=== PATIENT | female | born 1985 | race Caucasian/White ===

== ENCOUNTER → 2020-05-29 15:00 | Outpatient (BNVA) | payer BC, SELFPAY | PROVIDERS: Visit Provider Advanced Practice Midwife | DX: Z76.89 Persons encountering health services in other specified circumstances (principal) ==

== ENCOUNTER → 2021-10-06 08:28 | Outpatient (BNVA) | payer BC, SELFPAY | PROVIDERS: PCP Internal Medicine; Visit Provider Advanced Practice Midwife | DX: Z13.89 Encounter for screening for other disorder (principal) ==

== ENCOUNTER 2022-01-20 10:03 | Outpatient (REF) | payer BC, SELFPAY ==
[2022-01-20 10:27] LABS: MANUAL DIFF FLAG NO
[2022-01-20 10:56] LABS: Basophils Absolute Auto 0.1 X10*3/uL (0.0-0.2); Basophils Percent Auto 1.1 % (0-2); Eosinophils Absolute Auto 0.4 X10*3/uL (0.0-0.4); Eosinophils Percent Auto 3.8 % (0-4); Hematocrit 44.6 % (37.0-47.0); Hemoglobin 15.3 g/dl (12.0-16.0); Imm Gran Abs Auto 0.04 X10*3/uL (0.00-0.03); Imm Gran Pct Auto 0.4 % (0.0-0.4); Lymphocytes Absolute Auto 2.5 X10*3/uL (1.2-4.9); Lymphocytes Percent Auto 24.1 % (20-40); Mean Corpuscular HGB Conc 34.3 g/dl (31.0-35.0); Mean Corpuscular Hemoglobin 31.2 pg (27.0-33.0); Mean Platelet Volume 9.3 fL (9.4-12.3); Monocytes Absolute Auto 0.7 X10*3/uL (0.1-1.2); Monocytes Percent Auto 6.5 % (2-11); Neutrophils Absolute Auto 6.5 x10*3/uL (2.0-8.3); Neutrophils Percent Auto 64.1 % (45-73); Platelet Count 233 X10*3/uL (160-400); Red Cell Distribution Width 13.2 % (11.0-16.0); White Blood Count 10.2 X10*3/uL (4.8-10.8)
[2022-01-20 14:31] LABS: Alanine Aminotransferase 40 U/L (0-31); Albumin Level 4.6 g/dL (3.5-5.0); Alkaline Phosphatase 116 U/L (39-117); Anion Gap 17 (12-20); Aspartate Amino Transferase 34 U/L (5-31); Blood Urea Nitrogen 14 mg/dL (9-16); Calcium 9.6 mg/dL (8.4-10.2); Carbon Dioxide 23 mmol/L (22-29); Chloride 104 mmol/L (96-108); Cholesterol 248 mg/dL; Estimated Glomerular Filt Rate > 60; Glucose Fasting 103 mg/dL (60-99); HDL Cholesterol 71 mg/dL; LDL Cholesterol Calculated 152 mg/dl; Sodium 139 mmol/L (135-145); Total Protein 7.6 g/dL (6.5-8.0); Triglycerides 125 mg/dL
== END 2022-01-20 10:04 | disposition home or self-care (01) ==
LOC: HO.LAB 10:03
PROVIDERS: PCP Internal Medicine; Visit Provider Internal Medicine
DX: Z00.00 Encounter for general adult medical examination without abnormal findings (principal)
CPT/HCPCS: 36415; 80053; 80061; 85025

== ENCOUNTER 2022-05-05 16:06 | Outpatient (REF) | payer BC, SELFPAY ==
[2022-05-05 17:20] LABS: Influenza A PCR NEGATIVE (Negative); Influenza B PCR NEGATIVE (Negative); Resp Syncy Virus RNA Qual PCR NEGATIVE (Negative); SARS COV2 PCR INHOUSE NEGATIVE (Negative)
== END 2022-05-05 16:07 | disposition home or self-care (01) ==
LOC: HO.LNP 16:06
PROVIDERS: Visit Provider Internal Medicine
DX: Z20.822 Contact with and (suspected) exposure to COVID-19 (principal); R05.9 Cough, unspecified
CPT/HCPCS: 0241U

== ENCOUNTER 2022-05-07 13:56 | Outpatient (REF) | payer BC, SELFPAY ==
--- NOTE | ~2022-05-07 | XR_ITS ---
EXAMINATION: XR CHEST CLINICAL INFORMATION: Question pneumonia COMPARISON: Previous chest x-ray March 2016 TECHNIQUE: 2 views of the chest were obtained. FINDINGS: The cardiac and mediastinal contours are normal. The lungs are clear. There is no pleural effusion or pneumothorax. No acute bone abnormality. Question old trauma to the right shoulder. XR/XR chest 2V IMPRESSION: No evidence of pneumonia.
== END 2022-05-07 13:57 | disposition home or self-care (01) ==
LOC: HO.XRAY 13:56
PROVIDERS: PCP Internal Medicine; Visit Provider Internal Medicine
DX: R06.02 Shortness of breath (principal); R00.0 Tachycardia, unspecified; R51.9 Headache, unspecified
CPT/HCPCS: 71046

== ENCOUNTER 2023-01-20 08:59 | Outpatient (REF) | payer BC, SELFPAY ==
[2023-01-21 03:17] LABS: CT PCR NOT DETECTED (Not Detect.); NG PCR NOT DETECTED (Not Detect.)
[2023-01-29 03:14] LABS: HPV mRNA E6/E7 rflx Not Detected (Not Detected)
== END 2023-01-20 09:00 | disposition home or self-care (01) ==
LOC: HO.LNP 08:59
PROVIDERS: PCP Internal Medicine; Visit Provider Advanced Practice Midwife
DX: Z01.419 Encounter for gynecological examination (general) (routine) without abnormal findings (principal); Z20.2 Contact with and (suspected) exposure to infections with a predominantly sexual mode of transmission
CPT/HCPCS: 0353U; 87624; 88142

== ENCOUNTER 2023-01-20 08:59 | Outpatient (AMB) | payer BC, SELFPAY ==
--- NOTE | 2023-01-20 09:09 | A.OFFVIS_ITS ---
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 Scribed for TOR Todd by Sejal Galaviz medical record consultant, on 01/20/2023 at 9:[address] Maintenance Supervisor: Right Of Way Maintenance Supervisor Present (Carole) Allergies morphine [Morphine] Allergy (Severe, Verified 01/20/23 09:11) HALLUCINATES, hallucinations, vomiting, agitation, hallucinations,vomiting , agitation Sulfa (Sulfonamide Antibiotics) Allergy (Mild, Verified 01/20/23 09:11) HIVES hydromorphone [Dilaudid] Allergy (Unknown, Verified 01/20/23 09:11) hallucinations, vomiting, agitation From DILAUDID Allergy (Severe, Uncoded 01/20/23 09:11) HALLUCINATIONS Is last menstrual period known: Yes Last menstrual period: 01/04/23 Post menopausal: No Patient : No HPI HPI Comments History of Present Illness Details She is a premenopausal woman presenting for annual exam. Doing well with no sugar coating hand concerns. She admits to eating healthy and tries to stay active with exercise. Currently not sexually active. Regular monthly periods. Denies vaginal itching and irritation. STD screening offered; she accepts. Denies family hx of colon and ovarian cancer. Last pap smear 10/14/17. [facility] Medical History Asthma Blind right eye Hypertension Hypothyroid Interstitial cystitis Liver laceration, closed Surgical History H/O chest tube placement Hx of arthroscopy of left knee Hx of bilateral salpingectomy Hx of skin graft Family History Father High cholesterol Mother HTN (hypertension) Osteoporosis Diabetes mellitus High cholesterol Maternal Grandmother Lung cancer HTN (hypertension) Stroke Breast cancer Maternal Grandfather Lung cancer HTN (hypertension) Social History Alcohol intake: current Alcohol intake frequency: a few times a week Current occupational status: employed 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 Gender identity: Female Female Reproductive History Menstrual Age of Menarche: 12 Date of last menstrual period: 01/04/23 control method: permanent sterilization Permanent Sterilization: BTL Total pregnancies: 5 Full term: 3 Number of Living Children: 2 Ab spontaneous: 2 Date of last pap smear: 10/14/17 (negative Pap and HPV) Physical Exam Vital Signs: Last Vital Signs BP 124/84 01/20/23 09:10 BMI result Body Mass Index 28.6 Const General: cooperative, healthy appearing, no acute distress, well developed and alert Orientation/consciousness: patient oriented x3 HEENT Head: Yes normal to inspection Eyes General: appearance normal, both eyes and all related structures Neck Neck: Yes normal visual inspection Thyroid: Thyroid normal Chest Chest palpation & inspection: normal inspection of the chest Breast/axilla inspection: normal inspection of the breasts (no puckering, dimpling, peau de orange, retraction, discharge, masses) Breast/axilla palpation: normal palpation of the breasts Resp Effort & Inspection: normal respiratory effort GI Inspection: Yes normal to inspection Palpation (GI): Soft to palpation (to palpation) Rectal Exam - Female: deferred General: Yes bladder normal to inspection External Female Exam: normal external appearance and normal appearance of the urethra Speculum Exam - Vagina: normal appearance of the vagina, normal palpation and normal vaginal discharge Speculum Exam - Cervix: normal appearance of the cervix, normal palpation and Other cervical findings present (bled slightly with pap) Bimanual exam- vagina & uterus: normal palpation and normal palpation Bimanual Exam- Adnexa, other: normal adnexae and no masses Skin General skin exam: no rashes or lesions noted Neuro General: patient oriented x3 Cognition (Neuro): normal cognition Extrem General: Yes normal to inspection Psych Attitude: cooperative Thought process: Normal thought process present Assessment & Plan Assessment & Plan (1) Encounter for annual routine gynecological examination: Code(s): Z01.419 - Encounter for gynecological examination (general) (routine) without abnormal findings Plan: Discussed: Current recommendations for pap smears per ASCCP guidelines Breast awareness and periodic self breast exams. Maintaining a healthy lifestyle including a well balanced diet and routine exercise. BV testing and GC/CT panel done today. Await results and treat accordingly. All of her questions and concerns were addressed to the best of my ability. RTO in one year for AG. (2) Potential exposure to STD: Code(s): Z20.2 - Contact with and (suspected) exposure to infections with a predominantly sexual mode of transmission Orders: Orders CT NG by PCR Today Z20.2 - Contact with and (suspected) exposure to infections with a predominantly sexual mode of transmission Pap Smear Today Z01.419 - Encounter for gynecological examination (general) (routine) without abnormal findings Coding Level of Care Code Est Pt Prev Care 18-39y(12265) Diagnoses Encounter for annual routine gynecological examination Z01.419 Potential exposure to STD Z20.2
[2023-01-20 09:10] VITALS: BP 124/84; BMI 28.6
== END 2023-01-20 10:36 | disposition home or self-care (01) ==
LOC: HO.HWS 08:59
PROVIDERS: PCP Internal Medicine; Visit Provider Advanced Practice Midwife
DX: Z01.419 Encounter for gynecological examination (general) (routine) without abnormal findings (principal); Z20.2 Contact with and (suspected) exposure to infections with a predominantly sexual mode of transmission
CPT/HCPCS: 99395

== ENCOUNTER 2023-02-21 16:16 | Emergency (ER) | payer BC, SELFPAY ==
[2023-02-21 16:27] VITALS: BP 159/102; PULSE 117; RESP 20; TEMP 37.4; O2SAT 100; BMI 28.2
--- NOTE | 2023-02-21 16:27 | ED_ITS ---
HPI - General Adult General Chief complaint: Allergic Reaction Stated complaint: Allergic reaction Time Seen by Provider: 02/21/23 20:39 Source: patient Mode of arrival: ambulatory Limitations: no limitations History of Present Illness HPI narrative: Patient comes to the emergency room complaining of an allergic reaction to shrimp or spinach artichoke dip. Shortly after patient started eating, patient reported having of tingly sensation in the roof of the palate, vomiting, abdominal discomfort, itchy throat and difficulty breathing. Patient took p.o. Benadryl at home, albuterol and Claritin. By the time that she arrived to the emergency room, most of her symptoms resolved. Related Data Home Medications Medication Instructions Recorded Confirmed fluticasone propionate 110 2 puff inhalation BID 10/06/21 mcg/actuation HFA aerosol inhaler (Flovent HFA) amlodipine 5 mg tablet 5 mg PO BID 01/20/23 levothyroxine 100 mcg tablet 100 mcg PO QAM 01/20/23 Previous Rx's Medication Instructions Recorded famotidine 40 mg tablet (Pepcid) 40 mg PO DAILY #2 tabs 02/21/23 prednisone 50 mg tablet 50 mg PO DAILY #2 tabs 02/21/23 Allergies Allergy/AdvReac Type Severity Reaction Status Date / Time morphine [Morphine] Allergy Severe HALLUCINATES, Verified 02/21/23 16:31 hallucinations, vomiting, agitation, hallucinations,vomiting , agitation Sulfa (Sulfonamide Allergy Mild HIVES Verified 02/21/23 16:31 Antibiotics) hydromorphone [Dilaudid] Allergy Unknown hallucinations, Verified 02/21/23 16:31 vomiting, agitation shrimp Allergy Facial Verified 02/21/23 16:32 Swelling From DILAUDID Allergy Severe HALLUCINATI Uncoded 02/21/23 16:31 ONS Review of Systems Review of Systems: Constitutional : No Weight loss, No Fever, No Chills, No Night Sweats, No Fatigue, No Malaise ENT/Mouth : No Hearing loss, No Ear Pain, No Nasal Congestion, No Sinus Pain, No Hoarseness, complaining of throat itching, No sore throat, No Rhinorrhea, No Swallowing Difficulty Eyes: No Eye Pain, No Swelling, No Redness, No Foreign Body, No Discharge, No Vision Changes Cardiovascular : No Chest Pain, No SOB, No Dyspnea on Exertion, No Orthopnea, No Edema, No Palpitations Respiratory : No Cough, No Sputum, No Wheezing, No Smoke Exposure, No Dyspnea Gastrointestinal : Complaining of nausea vomiting, No Diarrhea, No Constipa tion, No abdominal Pain, No Hematochezia, No Melena Genitourinary : no irregular bleeding, No Dysuria, No Urinary Frequency, No Hematuria, No Urinary Incontinence, No Urgency, No Flank Pain, No Urinary Flow Changes, No Hesitancy Musculoskeletal : No joint pain, No Myalgias, No Joint Swelling Skin : complaining of hives Neuro : No Weakness, No Numbness, No Paresthesias, No Loss of Consciousness, No Dizziness, No Headache Psych : No Anxiety/Panic, No Depression, No SI/HI/AH/VH, No Social Issues, Heme/Lymph: No Bruising, No Bleeding,No Lymphadenopathy Endocrine : No Polyuria, No Polydipsia, No Temperature Intolerance [facility] Past Medical History Medical History Asthma Blind right eye Hypertension Hypothyroid Interstitial cystitis Liver laceration, closed Surgical History H/O chest tube placement Hx of arthroscopy of left knee Hx of bilateral salpingectomy Hx of skin graft Family History Family History Father High cholesterol Mother HTN (hypertension) Osteoporosis Diabetes mellitus High cholesterol Maternal Grandmother Lung cancer HTN (hypertension) Stroke Breast cancer Maternal Grandfather Lung cancer HTN (hypertension) Social History Social History Alcohol intake: current Alcohol intake frequency: a few times a week Advance Directives: Yes Advance Directives Information Provided: No Advance Directives on File: No Current occupational status: employed 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 Oriented X3. No acute distress. Eyes: Pupil on the left equal, round and reactive to light. , prosthetic eye on the right ENT: Pharynx normal. Neck: Normal inspection. Neck supple. No lymph nodes noted. No crepitus CVS: Normal heart rate and rhythm. Pulses normal. Normal S1 and S2 Respiratory: No respiratory distress. Breath sounds normal. No Wheezing. No rales Abdomen: Soft and nontender. No rigidity. No distention. Skin: Skin warm and dry. Normal skin color. Normal skin turgor. Extremities: No lower extremity edema. No Lacerations. No Rash Neuro: Oriented X 3. No motor deficit. No sensory deficit. Moving all extremities. No slurred speech. CN 2 through 12 grossly intact Psych: calm, cooperative, normal affect Course Course Course Narrative: This is a rapid medical exam: Additional HPI, ROS, PE not included below will be deferred to primary provider. Patient is a 37-year-old female presenting to the emergency department stating that she ate shrimp and spinach artichoke dip at home then developed tingling sensation in mouth, abdominal pain, vomiting, shortness of breath. Used albuterol inhaler, took Benadryl and Claritin. Feels itching inside ears and mouth. Lungs clear throughout, no angioedema, no uvula edema, tachycardic to 115, BP 159/102. States has previously had sensation of mouth swelling when she ate spinach artichoke dip in the past. Medications Administered Discontinued Medications Generic Name Dose Route Start Last Admin Trade Name Freq PRN Reason Stop Dose Admin Diphenhydramine HCl 25 mg 02/21/23 20:46 02/21/23 20:53 Diphenhydramine Hcl 25 Mg Capsule PO 02/21/23 20:47 25 mg ONCE ONE Administration Famotidine 20 mg 02/21/23 20:46 02/21/23 20:53 Famotidine 20 Mg Tablet PO 02/21/23 20:47 20 mg ONCE ONE Administration Prednisone 60 mg 02/21/23 20:46 02/21/23 20:53 Prednisone 20 Mg Tablet PO 02/21/23 20:47 60 mg ONCE ONE Administration Medical Decision Making Medical Decision Making MDM Narrative: Prior to arrival, patient self-medicated with Benadryl, albuterol and Claritin. By the time she arrived to the emergency room, most of her symptoms had resolved. -discussed with the patient that she needs to follow-up with the primary care physician as she may to be referred to immunology for allergy testing. -patient had very mild/residual symptoms, nothing visual. Patient was given a dose of prednisone, Benadryl and Pepcid in the ED Differential Diagnosis Differential Diagnoses: The differential diagnosis associated with the presentation includes (Allergic reaction, hives hyper-sensitivity reaction) Critical Care Time Critical Care Time Critical Care Time: Yes Total Critical Care Time: 30 Attestation: I have personally provided critical care time. Time includes review of lab data, radiology results, discussion with consultants, and monitoring for potential decompensation. Intervention performed as documented. Discharge Plan Discharge Clinical Impression: Allergic reaction Patient Disposition: Home, Self-Care Instructions: Food Allergy (ED) Additional Instructions: Please follow-up with your primary care physician tomorrow. If you have any worsening or new symptoms, please return to the emergency room or call 911 Prescriptions: New prednisone 50 mg tablet 50 mg PO DAILY Qty: 2 0RF famotidine [Pepcid] 40 mg tablet 40 mg PO DAILY Qty: 2 0RF No Action Flovent HFA 110 mcg/actuation HFA aerosol inhaler 2 puff inhalation BID levothyroxine 100 mcg tablet 100 mcg PO QAM amlodipine 5 mg tablet 5 mg PO BID
[2023-02-21 17:17] VITALS: PULSE 93; O2SAT 99
[2023-02-21 17:58] VITALS: BP 144/77; PULSE 67; RESP 20; TEMP 37.1; O2SAT 98
--- NOTE | 2023-02-21 18:44 | PC.NURSE ---
pt alert and cooperative, speaking in full sentences, managing own secretions, no apparent resp distress pt SpO2 98-100% on RA. Pt has not had any additional episodes of vomiting since arriving in dept. pt oob to BR independently, call sharpe within reach
[2023-02-21] MEDS: Famotidine 20 MG TABLET PO (20:53)
[2023-02-21] MEDS: predniSONE 20 MG TABLET 60 MG PO (20:53)
[2023-02-21] MEDS: diphenhydrAMINE HCL 25 MG CAPSULE PO (20:53)
--- NOTE | 2023-02-21 20:54 | PC.NURSE ---
medicated per MAR, resting quietly.
== END 2023-02-21 21:01 | disposition home or self-care (01) ==
PROVIDERS: Emergency Provider Emergency Medicine; PCP Internal Medicine
DX: L50.0 Allergic urticaria (principal); Z79.899 Other long term (current) drug therapy
CPT/HCPCS: 99283; 99284

== ENCOUNTER 2023-02-26 08:07 | Outpatient (REF) | payer BC, SELFPAY ==
[2023-02-26 08:46] LABS: MANUAL DIFF FLAG NO
[2023-02-26 09:43] LABS: Basophils Absolute Auto 0.1 X10*3/uL (0.0-0.2); Basophils Percent Auto 0.8 % (0-2); Eosinophils Absolute Auto 0.5 X10*3/uL (0.0-0.4); Eosinophils Percent Auto 3.8 % (0-4); Hematocrit 45.7 % (37.0-47.0); Hemoglobin 15.8 g/dl (12.0-16.0); Imm Gran Abs Auto 0.05 X10*3/uL (0.00-0.03); Imm Gran Pct Auto 0.4 % (0.0-0.4); Lymphocytes Absolute Auto 3.3 X10*3/uL (1.2-4.9); Lymphocytes Percent Auto 25.7 % (20-40); Mean Corpuscular HGB Conc 34.6 g/dl (31.0-35.0); Mean Corpuscular Volume 89.8 fL (80.0-98.0); Mean Platelet Volume 9.3 fL (9.4-12.3); Monocytes Absolute Auto 0.6 X10*3/uL (0.1-1.2); Monocytes Percent Auto 4.9 % (2-11); Neutrophils Absolute Auto 8.2 x10*3/uL (2.0-8.3); Neutrophils Percent Auto 64.4 % (45-73); Platelet Count 255 X10*3/uL (160-400); Red Blood Count 5.09 X10*6/uL (4.20-5.50); Red Cell Distribution Width 12.3 % (11.0-16.0); White Blood Count 12.8 X10*3/uL (4.8-10.8)
[2023-02-26 10:14] LABS: Alanine Aminotransferase 24 U/L (0-31); Albumin Level 4.2 g/dL (3.5-5.0); Alkaline Phosphatase 94 U/L (39-117); Anion Gap 13 (12-20); Aspartate Amino Transferase 15 U/L (5-31); Bilirubin Total 0.3 mg/dL (0.0-1.0); Blood Urea Nitrogen 18 mg/dL (9-16); Calcium 9.4 mg/dL (8.4-10.2); Carbon Dioxide 27 mmol/L (22-29); Chloride 104 mmol/L (96-108); Cholesterol 166 mg/dL (<200); Estimated Glomerular Filt Rate > 60; Glucose Random 76 mg/dL (60-115); HDL Cholesterol 69 mg/dL (>40); LDL Cholesterol Calculated 85 mg/dL (<100); Potassium 4.8 mmol/L (3.3-5.1); Sodium 139 mmol/L (135-145); Triglycerides 63 mg/dL (<150)
== END 2023-02-26 08:08 | disposition home or self-care (01) ==
LOC: HO.LAB 08:07
PROVIDERS: PCP Internal Medicine; Visit Provider Internal Medicine
DX: I10 Essential (primary) hypertension (principal); E78.00 Pure hypercholesterolemia, unspecified; E03.9 Hypothyroidism, unspecified; R35.1 Nocturia
CPT/HCPCS: 36415; 80053; 80061; 85025

== ENCOUNTER 2023-03-21 13:38 | Outpatient (REF) | payer BC, SELFPAY | END 2023-03-21 13:39 | disposition home or self-care (01) | LOC: HO.LAB 13:38 | PROVIDERS: PCP Internal Medicine; Visit Provider Otolaryngology | DX: J30.89 Other allergic rhinitis (principal) | CPT/HCPCS: 36415; 82785; 86003 ==

== ENCOUNTER 2023-08-09 09:36 | Outpatient (REF) | payer BC, SELFPAY ==
[2023-08-09 10:51] LABS: MANUAL DIFF FLAG NO
[2023-08-09 11:01] LABS: Basophils Absolute Auto 0.1 X10*3/uL (0.0-0.2); Basophils Percent Auto 1.3 % (0-2); Eosinophils Absolute Auto 0.6 X10*3/uL (0.0-0.4); Eosinophils Percent Auto 6.3 % (0-4); Hematocrit 43.8 % (37.0-47.0); Hemoglobin 15.2 g/dl (12.0-16.0); Imm Gran Abs Auto 0.04 X10*3/uL (0.00-0.03); Imm Gran Pct Auto 0.4 % (0.0-0.4); Lymphocytes Absolute Auto 2.1 X10*3/uL (1.2-4.9); Lymphocytes Percent Auto 22.5 % (20-40); Mean Corpuscular HGB Conc 34.7 g/dl (31.0-35.0); Mean Corpuscular Hemoglobin 31.6 pg (27.0-33.0); Mean Corpuscular Volume 91.1 fL (80.0-98.0); Mean Platelet Volume 9.1 fL (9.4-12.3); Monocytes Absolute Auto 0.6 X10*3/uL (0.1-1.2); Monocytes Percent Auto 6.3 % (2-11); Neutrophils Percent Auto 63.2 % (45-73); Platelet Count 249 X10*3/uL (160-400); Red Blood Count 4.81 X10*6/uL (4.20-5.50); Red Cell Distribution Width 12.8 % (11.0-16.0); White Blood Count 9.4 X10*3/uL (4.8-10.8)
[2023-08-09 11:17] LABS: Anion Gap 14 (12-20); Blood Urea Nitrogen 12 mg/dL (9-16); Carbon Dioxide 25 mmol/L (22-29); Chloride 104 mmol/L (96-108); Estimated Glomerular Filt Rate > 60; Glucose Random 101 mg/dL (60-115); Potassium 3.5 mmol/L (3.3-5.1); Sodium 139 mmol/L (135-145)
[2023-08-09 11:35] LABS: Free T4 (Free Thyroxine) 1.13 ng/dL (0.71-1.85); Thyroid Stimulating Hormone 1.42 uIU/mL (0.32-4.0)
== END 2023-08-09 09:37 | disposition home or self-care (01) ==
LOC: HO.10HDL 09:36
PROVIDERS: Visit Provider Internal Medicine
DX: I10 Essential (primary) hypertension (principal); E03.9 Hypothyroidism, unspecified
CPT/HCPCS: 36415; 80048; 84439; 84443; 85025

== ENCOUNTER 2024-02-03 11:11 | Outpatient (AMB) | payer BC, SELFPAY ==
--- NOTE | 2024-02-03 11:13 | MHC.OFFVIS ---
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 Healthcare Consultant: Healthcare Consultant Present (Carole) Allergies morphine [Morphine] Allergy (Severe, Verified 02/03/24 11:14) HALLUCINATES, hallucinations, vomiting, agitation, hallucinations,vomiting , agitation Sulfa (Sulfonamide Antibiotics) Allergy (Mild, Verified 02/03/24 11:14) HIVES hydromorphone [Dilaudid] Allergy (Unknown, Verified 02/03/24 11:14) hallucinations, vomiting, agitation ibuprofen [From Motrin] Allergy (Unknown, Verified 02/03/24 11:17) Vomiting shrimp Allergy (Verified 02/03/24 11:14) Facial Swelling From DILAUDID Allergy (Severe, Uncoded 02/21/23 16:31) HALLUCINATIONS Is last menstrual period known: Yes Last menstrual period: 01/30/24 HPI Comments Details: She is a premenopausal woman presenting for annual examination. Doing well with concerns: Reports irregular cycles from March to September sporadically on and off closely spaced and bled up to 10 days at times. Also notes she has some cystic acne formation underneath her chin and new onset of facial hair and chest hair growth. Last TSH and free T4 documented 08/09/2023 1.42/1.13. She reports her lab work was repeated last week at [facility] and was normal, copies not available today. She tries to eat healthy and stays active with exercise. Regular monthly menses since September. Currently is sexually active. She denies vaginal itching and irritation. STI screening offered; she declines. Denies family history of ovarian or colon cancer. FH breast cancer. Last pap smear 2022, negative. Admits to smoking consider quitting often. [facility] Medical History Hypertension Liver laceration, closed Hypothyroid Asthma Blind right eye Interstitial cystitis Surgical History (Updated 02/03/24 @ 11:29 by LUCINDA Mejia) History of facial surgery Hx of arthroscopy of left knee Hx of bilateral salpingectomy Hx of skin graft H/O chest tube placement Family History Father High cholesterol Mother HTN (hypertension) Osteoporosis Diabetes mellitus High cholesterol Maternal Grandmother Lung cancer HTN (hypertension) Stroke Breast cancer Maternal Grandfather Lung cancer HTN (hypertension) Social History (Updated 02/03/24 @ 11:19 by LUCINDA Mejia) Alcohol intake: current Alcohol intake frequency: a few times a week Patient Tobacco Use Status: Current everyday Tobacco user Cigarettes Per Day: 10 Current occupational status: employed 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 Gender identity: Female Female Reproductive History Menstrual Age of Menarche: 12 Duration of menses: 3-5 days Date of last menstrual period: 01/30/24 control method: permanent sterilization Permanent Sterilization: BTL Total pregnancies: 5 Full term: 3 Number of Living Children: 3 Ab spontaneous: 2 Date of last pap smear: 01/20/23 (neg pap and hpv) Review of Systems Const All systems reviewed & are unremarkable except as noted in HPI and below Reports as per HPI Eyes Reports no additional complaints ENT Reports no additional complaints Card Reports no additional complaints Resp Reports no additional complaints GI Reports as per HPI and Reports no additional complaints Reports as per HPI Musc Reports no additional complaints Skin/Breast Reports as per HPI Neuro Reports no additional complaints Psych Reports no additional complaints Endo Reports no additional complaints Lester/Lymph Reports no additional complaints Aller/Immun Reports no additional complaints Physical Exam Vital Signs: Last Vital Signs BP 126/80 02/03/24 11:14 BMI result Body Mass Index 30.5 Const General: cooperative, healthy appearing, no acute distress, well developed and alert Orientation/consciousness: patient oriented x3 HEENT Other: Under chin and jawline acne cystic appearance. Head: Yes normal to inspection Eyes General: appearance normal, both eyes and all related structures Neck Neck: Yes normal visual inspection Thyroid: Thyroid normal Chest Chest palpation & inspection: normal inspection of the chest and other (no puckering, dimpling, peau de orange, retraction, discharge, masses) Breast/axilla inspection: normal inspection of the breasts Breast/axilla palpation: normal palpation of the breasts Resp Effort & Inspection: normal respiratory effort GI Inspection: Yes normal to inspection Palpation (GI): Soft to palpation Rectal Exam - Female: deferred General: Yes bladder normal to palpation External Female Exam: normal external appearance and normal appearance of the urethra Speculum Exam - Vagina: normal appearance of the vagina, normal palpation and normal vaginal discharge Speculum Exam - Cervix: normal appearance of the cervix and normal palpation Bimanual exam- vagina & uterus: normal bimanual exam, normal palpation, uterine size normal, bladder normal to palpation, normal palpation and non-tender Bimanual Exam- Adnexa, other: no masses Skin General skin exam: no rashes or lesions noted Rashes: no rashes Neuro General: patient oriented x3 Cognition (Neuro): normal cognition Extrem General: Yes normal to inspection Psych Attitude: cooperative Thought process: Normal thought process present Assessment & Plan Assessment & Plan (1) Hirsutism: Code(s): L68.0 - Hirsutism (2) Irregular menses: Code(s): N92.6 - Irregular menstruation, unspecified Plan Discussed: Current recommendations for pap smears per ASCCP guidelines. Breast awareness and periodic breast exams. Maintain a healthy lifestyle including a well balanced diet and routine exercise. Workup for irregular menses and hirsutism to include pelvic ultrasound, lab work advised to follow up in person for results. Discussed EMB procedure due to AUB, will discuss further at next visit Screening mammogram ordered for after her 39th birthday. Patient verbalizes understanding and agrees to the plan of care. She was given opportunity to ask questions and all questions were answered to the best of my ability. RTO in one year for annual combination building inspector examination. This note is constructed using voice recognition software. While every effort has been made to ensure accuracy, red cap errors may have been included. Orders: Orders US pelvic and transvaginal Today N92.6 - Irregular menstruation, unspecified 17 Hydroxyprogesterone Today L68.0 - Hirsutism Prolactin Today L68.0 - Hirsutism DHEA Sulfate Today L68.0 - Hirsutism Testosterone, Free/Total Today L68.0 - Hirsutism MM tomosynthesis screening BI 04/30/24 Z12.31 - Encounter for screening mammogram for malignant neoplasm of breast Coding Level of Care Code Est Pt Prev Care 18-39y(18831) Diagnoses Hirsutism L68.0 Irregular menses N92.6
[2024-02-03 11:14] VITALS: BP 126/80; BMI 30.5
== END 2024-02-03 11:55 | disposition home or self-care (01) ==
PROVIDERS: PCP Internal Medicine; Visit Provider Advanced Practice Midwife
DX: Z01.419 Encounter for gynecological examination (general) (routine) without abnormal findings (principal); L68.0 Hirsutism; N92.6 Irregular menstruation, unspecified
CPT/HCPCS: 99395

== ENCOUNTER 2024-02-03 11:11 | Outpatient (REF) | payer BC, SELFPAY ==
[2024-02-05 09:58] LABS: DHEA Sulfate 178 mcg/dL (19-237); Prolactin 7.7 ng/mL
[2024-02-09 17:58] LABS: Testosterone, Total 35 ng/dL (2-45)
== END 2024-02-03 11:12 | disposition home or self-care (01) ==
LOC: HO.LAB 11:11
PROVIDERS: PCP Internal Medicine; Visit Provider Advanced Practice Midwife
DX: L68.0 Hirsutism (principal)
CPT/HCPCS: 36415; 82627; 83498; 84146; 84402; 84403

== ENCOUNTER 2024-02-21 15:40 | Outpatient (REF) | payer BC, SELFPAY ==
--- NOTE | ~2024-02-21 | US_ITS ---
EXAMINATION: US PELVIS CLINICAL INFORMATION: History of irregular menses COMPARISON: None available. TECHNIQUE: Ultrasound of the pelvis is performed using both transabdominal and transvaginal transducers along with Doppler. Transvaginal imaging is performed due to inadequate visualization transabdominally. FINDINGS: Uterus: The uterus is anteverted and measures 7.8 x 3.8 x 4.1 cm. The double wall endometrial thickness is 0.6 cm. The uterus is smooth in contour and has normal myometrial echogenicity. No visible fibroid. Adnexa: Both ovaries are visualized. There is normal color flow to the adnexa. There is no ovarian torsion. Trace fluid noted in the endometrial canal and lower uterine segment. Right ovary measures 1.9 x 2.1 x 1.8 cm. Volume 3.8 mL. Dominant follicle noted Left ovary measures 2.9 x 3.3 x 2.5 cm. Volume 12.3 mL. Complex corpus luteum measuring 1.4 x 1.3 x 1.9 cm. US/US pelvic and transvaginal IMPRESSION: 1. Trace fluid noted in the endometrial canal and lower uterine segment. 2. Complex corpus luteum in the left ovary measuring 1.4 x 1.3 x 1.9 cm. Electronically signed by: David Minor MD 03/01/2024 09:57 AM EDT
== END 2024-02-21 15:41 | disposition home or self-care (01) ==
LOC: HO.US 15:40
PROVIDERS: PCP Internal Medicine; Visit Provider Advanced Practice Midwife
DX: N92.6 Irregular menstruation, unspecified (principal)
CPT/HCPCS: 76830; 76856

== ENCOUNTER 2024-03-13 15:48 | Outpatient (AMB) | payer BC, SELFPAY ==
--- NOTE | 2024-03-13 15:52 | MHC.OFFVIS ---
Intake Visit Reasons: US follow up Route Carrier: Route Carrier Present Allergies morphine [Morphine] Allergy (Severe, Verified 03/13/24 15:52) HALLUCINATES, hallucinations, vomiting, agitation, hallucinations,vomiting , agitation Sulfa (Sulfonamide Antibiotics) Allergy (Mild, Verified 03/13/24 15:52) HIVES hydromorphone [Dilaudid] Allergy (Unknown, Verified 03/13/24 15:52) hallucinations, vomiting, agitation ibuprofen [From Motrin] Allergy (Unknown, Verified 03/13/24 15:52) Vomiting shrimp Allergy (Verified 03/13/24 15:52) Facial Swelling From DILAUDID Allergy (Severe, Uncoded 02/21/23 16:31) HALLUCINATIONS Is last menstrual period known: Yes Last menstrual period: 02/20/24 HPI Comments Details: Patient is here today for a follow up ultrasound results and lab work. History of hirsutism, and reported a 10 day long menstrual cycle. She admits that she had her menstrual cycle during her ultrasound procedure. She denies any pelvic pain. [facility] Medical History (Updated 03/13/24 @ 16:02 by Nika Sr CNM) Hypertension Liver laceration, closed Hypothyroid Asthma Blind right eye Interstitial cystitis Surgical History (Updated 02/03/24 @ 11:29 by LUCINDA Mejia) History of facial surgery Hx of arthroscopy of left knee Hx of bilateral salpingectomy Hx of skin graft H/O chest tube placement Family History Father High cholesterol Mother HTN (hypertension) Osteoporosis Diabetes mellitus High cholesterol Maternal Grandmother Lung cancer HTN (hypertension) Stroke Breast cancer Maternal Grandfather Lung cancer HTN (hypertension) Social History (Updated 02/03/24 @ 11:19 by LUCINDA Mejia) Alcohol intake: current Alcohol intake frequency: a few times a week Patient Tobacco Use Status: Current everyday Tobacco user Cigarettes Per Day: 10 Current occupational status: employed 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 Gender identity: Female Female Reproductive History Menstrual Age of Menarche: 12 Date of last menstrual period: 02/20/24 Review of Systems Const All systems reviewed & are unremarkable except as noted in HPI and below Endo Reports no additional complaints Physical Exam Const General: cooperative, healthy appearing and no acute distress Psych Appearance: well kempt Attitude: cooperative Thought process: Normal thought process present Results Reviewed Results Reviewed: [address] [address] Ultrasound Report Signed Patient: Donna Lanier MR#: [id number] : 1985 Acct:[id number] Age/Sex: 38 / F ADM Date: 02/21/24 Loc: HO.US Attending Dr: Nika Sr CNM Ordering Physician: Nika Sr CNM Date of Service: 02/21/24 Procedure(s): US pelvic and transvaginal Accession Number(s): [id number] cc: Saulo Bowie MD; Nika Sr CNM~ EXAMINATION: US PELVIS CLINICAL INFORMATION: History of irregular menses COMPARISON: None available. TECHNIQUE: Ultrasound of the pelvis is performed using both transabdominal and transvaginal transducers along with Doppler. Transvaginal imaging is performed due to inadequate visualization transabdominally. FINDINGS: Uterus: The uterus is anteverted and measures 7.8 x 3.8 x 4.1 cm. The double wall endometrial thickness is 0.6 cm. The uterus is smooth in contour and has normal myometrial echogenicity. No visible fibroid. Adnexa: Both ovaries are visualized. There is normal color flow to the adnexa. There is no ovarian torsion. Trace fluid noted in the endometrial canal and lower uterine segment. Right ovary measures 1.9 x 2.1 x 1.8 cm. Volume 3.8 mL. Dominant follicle noted Left ovary measures 2.9 x 3.3 x 2.5 cm. Volume 12.3 mL. Complex corpus luteum measuring 1.4 x 1.3 x 1.9 cm. US/US pelvic and transvaginal IMPRESSION: 1. Trace fluid noted in the endometrial canal and lower uterine segment. 2. Complex corpus luteum in the left ovary measuring 1.4 x 1.3 x 1.9 cm. 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 Ultrasound findings-complex corpus luteum cyst on left sign, plan follow up ultrasound to ascertain clearance. Counseled regarding findings of: Complex ovarian cyst, which is often benign, and most resolve on their own overtime. Some develop into premalignant or malignant tumors. Limitations of testing for diagnostic purposes. Further monitoring and evaluation is recommended with US, possible CT, or MRI study. If persists, or is indicated (Ca-125, Carbohydrate Antigen 19-9, & Carcinoembryonic Antigen) labs will be ordered and referral to [facility] or general gynecology for MD care if indicated for possible surgical consult. Follow up results appointment. Report any pelvic pain on left side for sooner evaluation. All of her questions and concerns were addressed to the best of my ability and shared decision making. She is agreeable to the plan of care. This note is constructed using voice recognition software. While every effort has been made to ensure accuracy, communications electrician supervisor errors may have been included. Orders: Orders US pelvic and transvaginal 04/09/24 N83.292 - Other ovarian cyst, left side Coding Level of Care Code Est Pt Level 3 (44431) Diagnoses Encounter to discuss test results Z71.2 Complex cyst of left ovary N83.292
== END 2024-03-13 16:09 | disposition home or self-care (01) ==
PROVIDERS: PCP Internal Medicine; Visit Provider Advanced Practice Midwife
DX: Z71.2 Person consulting for explanation of examination or test findings (principal); N83.292 Other ovarian cyst, left side
CPT/HCPCS: 99213

== ENCOUNTER → 2024-03-13 15:48 | Outpatient (BNVA) | payer BC, SELFPAY | PROVIDERS: PCP Internal Medicine; Visit Provider Advanced Practice Midwife ==

== ENCOUNTER 2024-04-04 10:45 | Outpatient (REF) | payer BC, SELFPAY ==
--- NOTE | ~2024-04-04 | US_ITS ---
EXAMINATION: US PELVIS CLINICAL INFORMATION: Left ovarian cyst COMPARISON: 02/21/2024 TECHNIQUE: Ultrasound of the pelvis is performed using both transabdominal and transvaginal transducers along with Doppler. Transvaginal imaging is performed due to inadequate visualization transabdominally. FINDINGS: Uterus: The uterus is anteverted and measures 6.7 x 3.2 x 4.0 cm. The double wall endometrial thickness is 3 mm. The uterus is smooth in contour and has normal myometrial echogenicity. No visible fibroid. Adnexa: Both ovaries are visualized. There is normal color flow to the adnexa. There is no ovarian torsion. There is no pelvic ascites or fluid collection. Right ovary measures 2.1 x 1.1 x 1.4 cm for a volume of 1.7 cc and appears normal. Left ovary measures 2.2 x 2.3 x 1.5 cm for a volume of 4.0 cm and contains a resolving significantly smaller corpus luteal cyst measuring only 0.7 cm (previously 1.9 cm). US/US pelvic and transvaginal IMPRESSION: Resolving left corpus luteal cyst. No follow-up is indicated. Electronically signed by: Francisco Beard MD 06/03/2024 07:50 PM [facility]
== END 2024-04-04 10:46 | disposition home or self-care (01) ==
LOC: HO.US 10:45
PROVIDERS: PCP Internal Medicine; Visit Provider Advanced Practice Midwife
DX: N83.292 Other ovarian cyst, left side (principal)
CPT/HCPCS: 76830; 76856

== ENCOUNTER 2024-06-02 09:34 | Outpatient (REF) | payer BC, SELFPAY | END 2024-06-02 09:35 | disposition home or self-care (01) | LOC: HO.MAMMO 09:34 | PROVIDERS: PCP Internal Medicine; Visit Provider Advanced Practice Midwife | DX: Z12.31 Encounter for screening mammogram for malignant neoplasm of breast (principal) | CPT/HCPCS: 77063; 77067 ==

== ENCOUNTER → 2024-06-02 09:45 | Outpatient (BNV) | payer BC, SELFPAY | PROVIDERS: PCP Internal Medicine; Visit Provider Internal Medicine | DX: Z12.31 Encounter for screening mammogram for malignant neoplasm of breast (principal) | CPT/HCPCS: 77063; 77067 ==

== ENCOUNTER 2025-04-04 15:19 | Outpatient (AMB) | payer BC, SELFPAY ==
--- NOTE | 2025-04-04 13:41 | MHC.PC.OV ---
Vital Signs 04/04/25 15:29 Height 5 ft 6 in Weight 199 lb 4 oz BMI 32.2 BP 124/80 Blood Pressure Location Lt brachial Position Sitting Pulse 97 Pulse Source Pulse Oximeter Temp 97.1 F Temp Source Temporal Artery Scan Pulse Oximetry (%) 99 Oxygen Delivery Method Room Air Intake Visit Reasons: Annual / Dr Bowie Commutator Undercutter Required: No Accompanied by: Self / Same As Patient Allergies morphine (Morphine) Allergy (Severe, Verified 04/04/25 13:41) HALLUCINATES, hallucinations, vomiting, agitation, hallucinations,vomiting , agitation Sulfa (Sulfonamide Antibiotics) Allergy (Mild, Verified 04/04/25 13:41) HIVES hydromorphone (Dilaudid) Allergy (Unknown, Verified 04/04/25 13:41) hallucinations, vomiting, agitation ibuprofen (From Motrin) Allergy (Unknown, Verified 04/04/25 13:41) Vomiting shrimp Allergy (Verified 04/04/25 13:41) Facial Swelling From DILAUDID Allergy (Severe, Uncoded 02/21/23 16:31) HALLUCINATIONS Medication List - Last Reconciled 05/06/25 by CASH Hemphill amlodipine 5 mg PO BID 90 days Auvi-Q (epinephrine) 0.3 mg (0.3 mL) IM Q10M PRN NS budesonide 180 mcg/actuation (Pulmicort Flexhaler) 1 inh inhalation DAILY levothyroxine 100 mcg PO QAM Tobacco use date assessed: 04/04/25 Dental Screening Dental Screen Date: 04/04/25 Did you have a dental visit in the last 12 months?: Yes Did you have a dental problem in the last 6 months where you did not have access to dental care?: No HPI HPI Comments History of Present Illness Details The patient is a 39-year-old female with Hypothyroidism, HTN, Asthma, AR and obesity presenting for routine follow-up and management of chronic conditions. She has a history of hypothyroidism managed with levothyroxine 100 mcg daily. She reports adherence to her medication regimen and has regular follow-ups with her circulation sales representative. The patient also has hypertension, for which she takes amlodipine. She denies any recent issues with blood pressure control. Her BP today was 124/80. Asthma is managed with Pulmacort and a rescue inhaler, which she rarely uses. She reports no recent exacerbations or hospitalizations related to asthma. The patient has a known shrimp allergy and carries an EpiPen. She recently used the EpiPen due to an unknown trigger, prompting further allergy testing in [place]. She has chronic sinusitis with nasal polyps, previously treated with sinus surgery last year. She uses a compounded medication mixed with saline for sinus rinses twice daily. She is followed by an ENT in [place]. The patient is monitored for lymphoma, which is currently non-cancerous and localized to the sinuses. She underwent a PET scan over the summer, confirming no spread beyond the sinuses. She experiences occasional heartburn, typically once a week, managed with dietary adjustments and milk. Medical History: - Hypothyroidism - Hypertension - Asthma - Shrimp allergy - Chronic sinusitis with nasal polyps - Lymphoma (non-cancerous, sinus involvement) - Heartburn Surgical History: - Sinus surgery for chronic sinusitis with nasal polyps Medications: - Levothyroxine 100 mcg daily for hypothyroidism - Amlodipine for hypertension - Holocort for asthma - EpiPen for shrimp allergy - Compounded medication for sinusitis (mixed with saline for rinses) Patient was informed and verbally consented to the use of an ambient scribe for clinic note documentation during this visit. [facility] Medical History (Updated 05/06/25 @ 00:48 by CASH Hemphill) Annual physical exam Asthma Blind right eye Chronic sinusitis GERD (gastroesophageal reflux disease) Hypertension Hypothyroid Interstitial cystitis Liver laceration, closed Shrimp allergy Surgical History H/O chest tube placement History of facial surgery Hx of arthroscopy of left knee Hx of bilateral salpingectomy Hx of skin graft Family History (Updated 04/04/25 @ 15:39 by Carola Donovan MA) Father High cholesterol Mother HTN (hypertension) Osteoporosis Diabetes mellitus High cholesterol Maternal Grandmother Lung cancer HTN (hypertension) Stroke Breast cancer Maternal Grandfather Lung cancer HTN (hypertension) Other Mental health disorder Substance abuse Social History Housing: House Alcohol intake: current Alcohol intake frequency: a few times a week Patient Tobacco Use Status: Current everyday Tobacco user Cigarettes Per Day: 10 e-Cigarette/Vaping Use: Currently Using Current occupational status: employed 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 1. Little interest or pleasure in doing things: not at all 2. Feeling down, depressed, or hopeless: not at all 3. Trouble falling or staying asleep, or sleeping too much: not at all 4. Feeling tired or having little energy: not at all 5. Poor appetite or overeating: not at all 6. Feeling bad about yourself - or that you are a failure or have let yourself or your family down: not at all 7. Trouble concentrating on things, such as reading the newspaper or watching television: not at all 8. Moving or speaking so slowly that other people could have noticed. Or the opposite - being so fidgety or restless that you have been moving around a lot more than usual: not at all 9. Thoughts that you would be better off or of hurting yourself in some way: not at all Total score: 0 Depression Screening Interpretation: Negative Depression Screening Done: Yes Source: Developed by Drs. Gerson Arroyo, Eda Elizabeth, Jabier Tariq and colleagues, with an educational perlita from [employer]. Thrive Questionnaire Date Thrive assessed: 04/04/25 I am a: Patient Within the past 12 months, did the food you bought not last and you didn't have the money to get more?: Never true Within the past 12 months, did you worry whether your food would run out before you got money to buy more?: Never true Do you have trouble paying for medicines?: No Do you have trouble getting transportation to medical appointments?: No Do you have trouble paying your heating and electricity bill?: No Do you have trouble taking care of your child, family member or friend?: No Do you have trouble with day-to-day activities such as bathing, preparing meals, shopping, managing finances, etc.?: No Are you currently unemployed and looking for a job?: No Are you interested in more education?: No THRIVE Score: 0 AUDIT C Alcohol Use Questionnaire (AUDIT-C) 1. How often do you have a drink containing alcohol?: Monthly or less 2. How many drinks containing alcohol do you have on a typical day when you are drinking?: 1 or 2 3. How often do you have six or more drinks on one occasion?: Less than monthly Total Score: 2 DANNY-7 AMB Questionnaire DANNY-7 Date DANNY - 7 assessed: 04/04/25 Feeling nervous, anxious, or on edge: 0 = Not at all Not being able to stop or control worryin = Not at all Worrying too much about different things: 0 = Not at all Trouble relaxin = Not at all Being so restless that it is hard to sit still: 0 = Not at all Becoming easily annoyed or irritable: 0 = Not at all Feeling afraid as if something awful might happen: 0 = Not at all Total DANNY-7 score (0-4 normal; 5-9 mild; 10-14 moderate; 15-21 severe): 0 Source: Developed by Drs. Gerson Arroyo, Eda Elizabeth, Jabier Tariq and colleagues, with an educational perlita from [employer]. Review of Systems Const Details: - General: Denies recent weight changes, fever, or fatigue. - Respiratory: Denies dyspnea, cough, or wheezing. Reports asthma managed with Holocort and rare use of rescue inhaler. - Cardiovascular: Denies chest pain or palpitations. - Gastrointestinal: Reports occasional heartburn, typically once a week, managed with dietary adjustments and milk. Physical exam (Primary Care) Vital Signs: Last Vital Signs Temp 97.1 F 04/04/25 15:29 Pulse 97 04/04/25 15:29 BP 124/80 04/04/25 15:29 Pulse Ox 99 04/04/25 15:29 Oxygen Delivery Method Room Air 04/04/25 15:29 BMI result Body Mass Index 32.2 GENERAL Well developed, obese, in no apparent distress HEENT Head-Normocephalic Ears- Canals clear, TMs WNL Mouth/Throat-No lesions, no erythema, no exudate Neck- Supple, No lymphadenopathy, thyroid WNL RESPIRATORY Normal I:E, Clear to auscultation CARDIOVASCULAR Regular, rate and rhythm, No murmurs or rubs GASTROINTESTINAL Soft, nontender, normal bowel sounds, no masses MUSCULOSKELETAL Back- nontender Joints- no swelling or deformity NEUROLOGICAL Gait normal PSYCHIATRIC Oriented to person, place and time Mood and affect WNL Appearance WNL Speech WNL Thought processes WNL Tobacco/Smoking Status: Tobacco use Status Tobacco use date assessed 04/04/25 04/04/25 13:42 Patient Tobacco Use Status Current everyday Tobacco 04/04/25 13:42 e-Cigarette/Vaping Use Currently Using 04/04/25 13:42 PHQ-9: PHQ-9 Score PHQ-9: Total score 0 04/04/25 15:29 Depression Screening Interpretation: Negative Thrive Assessment: Date of Thrive Assessment Date Thrive assessed 04/04/25 04/04/25 13:42 Coding Level of Care Code New Pt New Pt Level 4 (94782) Patient Type New Diagnoses Acquired hypothyroidism E03.9 Hypothyroidism type: acquired Primary hypertension I10 Hypertension type: primary hypertension GERD (gastroesophageal reflux disease) K21.9 Shrimp allergy Z91.013 Chronic sinusitis J32.9 Asthma J45.909 Time Spent (min) 35 Comment Time spent on chart review, Medication reconciliation, H&P, Patient education and orders. Assessment & Plan Assessment & Plan (1) Hypothyroid: Code(s): E03.9 - Hypothyroidism, unspecified Category: Medical Qualifiers: Hypothyroidism type: acquired Qualified Code(s): E03.9 - Hypothyroidism, unspecified Plan: The patient will continue on levothyroxine 100 mcg daily with regular follow-ups with her circulation sales representative. Thyroid function tests will be monitored biannually to ensure optimal management. Follow up in 6 months (2) Hypertension: Comment: BP today was 124/80 Code(s): I10 - Essential (primary) hypertension Category: Medical Qualifiers: Hypertension type: primary hypertension Qualified Code(s): I10 - Essential (primary) hypertension Plan: The patient will continue taking amlodipine for blood pressure management. Regular monitoring of blood pressure is advised to ensure control. Patient to follow up in 6 months or sooner if symptoms persist or worsen. (3) GERD (gastroesophageal reflux disease): Code(s): K21.9 - Gastro-esophageal reflux disease without esophagitis Category: Medical Plan: The patient manages heartburn with dietary adjustments and milk. Further evaluation may be considered if symptoms persist or worsen. (4) Shrimp allergy: Code(s): Z91.013 - Allergy to seafood Category: Medical Plan: The patient should continue carrying an EpiPen and is advised to undergo further allergy testing in [place] to identify unknown triggers. (5) Chronic sinusitis: Code(s): J32.9 - Chronic sinusitis, unspecified Category: Medical Plan: The patient will continue using the compounded medication for sinus rinses twice daily. Follow-up with the ENT specialist in [place] is planned for further management. (6) Asthma: Code(s): J45.909 - Unspecified asthma, uncomplicated Category: Medical Plan: Asthma management includes continued use of Pulmicort and a rescue inhaler as needed. The patient reports rare use of the rescue inhaler, indicating good control. Patient to follow up in 6 months or sooner if symptoms persist or worsen. Plan I discussed with the patient the importance of regular follow-ups for her chronic conditions, including hypothyroidism, hypertension, and asthma. We reviewed her current medication regimen and the need for continued monitoring of her thyroid function and blood pressure. I advised her to continue carrying an EpiPen due to her shrimp allergy and to pursue further allergy testing in [place]. We also discussed the management of her chronic sinusitis with nasal polyps and the importance of follow-up with her ENT specialist. The patient is under surveillance for lymphoma, and we emphasized the need for regular monitoring to ensure no progression. We also addressed her occasional heartburn and discussed dietary adjustments as a management strategy. Orders: Orders Complete Blood Count no Diff 04/04/25 Z00.00 - Encounter for general adult medical examination without abnormal findings Comprehensive Met. Panel 04/04/25 Z00.00 - Encounter for general adult medical examination without abnormal findings Lipid Panel 04/04/25 Z13.220 - Encounter for screening for lipoid disorders, Z00.00 - Encounter for general adult medical examination without abnormal findings TSH reflex Free T4 04/04/25 Z00.00 - Encounter for general adult medical examination without abnormal findings, E03.9 - Hypothyroidism, unspecified Vitamin D 25-OH Total 04/04/25 Z00.00 - Encounter for general adult medical examination without abnormal findings Patient Instructions: - Continue taking levothyroxine and amlodipine as prescribed. - Use Pulmicort and rescue inhaler for asthma management as needed. - Carry an EpiPen at all times and avoid known allergens. - Follow up with ENT specialist and undergo allergy testing in [place]. - Monitor blood pressure regularly and report any significant changes. - Manage heartburn with dietary adjustments and milk. - Schedule follow-up appointments as advised.
[2025-04-04 15:29] VITALS: BP 124/80; PULSE 97; TEMP 36.2; O2SAT 99; BMI 32.2
--- OUTSIDE RECORDS SUMMARY | 2025-04-04 19:07 | XMS_ITS | Encounter Summary ---
Author Organization [facility] Address [address] [place] [address] [place] [phone] Phone Care Team Providers Care Bee Keeper Name Role Phone Saulo Bowie MD Primary Care Provider Dejah Dean MD Primary Care Provider Encounter Details Date Type Department Care Team (Late st Contact Info) Description 03/21/2024 Procedure [facility] DEPT [address] [place] [address] Social History Tobacco Use Types Packs/Day Years Used Date Smoking Tobacco: Every Day Cigarettes 0.5 16.1 Started: 03/14/2009 Smokeless Tobacco: Never Alcohol Use Standard Drinks/Week Comments Not Currently 0 (1 standard drink = 0.6 oz pur e alcohol) 6 seltzers a week Education Answer Date Recorded Are you interested in more education? Not on ramos e 10/31/2022 Are you concerned about learning? Not on file 10/31/2022 No 10/31/2022 No 10/31/2022 Digital Access Answer Date Recorded No 11/14/2022 No 11/14/2022 Reliable internet access at home? Not on file 11/14/2022 Device with a working camera? Not on file Intimate Partner Violence Answer Date R ecorded Are you denied basic needs s uch as food, clothing, or medical care? No 03/21/2024 In the past 12 months have y ou been in a relationship with a person who hurts, threatens, or tries to control you? No 03/21/2024 Are you denied basic needs s uch as food, clothing, or medical care? No 03/21/2024 In the past 12 months have y ou been in a relationship with a person who hurts, threatens, or tries to control you? No 03/21/2024 Comments No Sex and Gender Information Value Date Recorded Sex Assigned at Not on file Legal Sex Female 6:22 PM EST Gender Identity Not on file Sexual Orientation Not on file documented as of this encounter Plan of Treatment Upcoming Encounters Date Type Department Care Team (Late st Contact Info) Description 04/30/2025 8:00 AM EST Office Visit [facility] Allergy [facility] [address] [facility], 4th Floor, [address] [place] [address] Bambi Parker MD, MPH [address] [address] [email or web address] 07/01/2025 11:45 AM EST Office Visit [facility] [address] [facility] 9th [place] [address] Juan Burnham MD [address] [place] [id number] [email or web address] 01/27/2026 9:30 AM EDT Office Visit [facility] [address] [place] [address] Ernie Cruz, DO [address] [place] [address] [email or web address] documented as of this encounter Visit Diagnoses Not on filedocumented in this encounter Care Teams Bee Keeper Relationship Specialty Start Date End Date Saulo Bowie MD [address] [place] [address] [place] [address] PCP - General 12/18/13 12/17/24 Dejah Dean MD [address] [place] [address] Dr Barker, [place] [address] PCP - General Internal Medicine 12/18/24 documented as of this encounter Additional Source Comments The information contained in this document represents components of the legal health record. It is not the complete legal health record.[facility]
--- OUTSIDE RECORDS SUMMARY | 2025-04-04 19:07 | XMS_ITS | Clinical Summary ---
Author Organization [facility] Address [address] [place] [address] Phone Care Team Providers Care Ladies Suit Operator Name Role Phone Dejah Dean MD Primary Care Provider [phone] Allergies Active Allergy Reactions Criticality Noted Date Comments Hydromorphone High 02/15/2018 agitated Morphine Other (See Comments) High 01/26/2002 agitation Ibuprofen 10/03/2023 Stomach pain, diarrhea, cramping Shrimp High 10/03/2023 Stomach pains, sneezing, difficulty breathing, n/v Sulfa (Sulfonamide Antibiotics) Hives Medium 01/26/2002 Acetaminophen 03/21/2024 Taken 5 months ago, had stomach pains, diarrhea, and cramping Medications amLODIPine (NORVASC) 5 MG tablet Take 1 tablet by mouth daily. 3 Active EPINEPHrine 0.3 mg/0.3 mL auto-injector Inject 0.3 mg under the skin as needed. 4 Active PULMICORT FLEXHALER 180 mcg/actuation inhaler Inhale 2 puffs into the lungs 2 (two) times a day. 4 Active albuterol 90 mcg/actuation inhaler Inhale 2 puffs into the lungs every 6 (six) hours as needed for wheezing. Active Medication-Free Text Mometasone 1.0 mg compounded for sinus rinse. Add 1 capsule (1.0 mg total) to 240 mL Neilmed sinus rinse and use nasally twice a day as directed. 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 Assessment & Plan (01/26/2024 1:12 PM EDT): Chemically and clinically euthyroid continue levothyroxine 100 mcg. Repeat thyroid function studies prior to the follow-up visit in a year. Assessment & Plan (12/23/2022 12:08 PM EDT): Chemically and clinically euthyroid on levothyroxine 100 mcg. She is going to repeat thyroid function studies today but I am good with the 100 on August 2022. She will repeat the lab work again in 1 year prior to the follow-up visit. Assessment & Plan (06/08/2022 9:09 AM EST): The patient is clinically euthyroid but her free T4 slightly elevated. She has lost significant weight over the last year I am decreasing the dose of levothyroxine from 112 to 100 mcg she will repeat thyroid function studies in 3 months time. Assessment & Plan (03/19/2021 4:10 PM EDT): The patient is chemically and clinically euthyroid on levothyroxine 112 mcg we will continue the current dose of medications. She will repeat thyroid function studies in 1 year. Assessment & Plan (04/16/2020 11:59 AM EDT): Endocrine clinically euthyroid on levothyroxine 112 mcg; change the dose. She will repeat thyroid function studies in a year. I have renewed the medication for another year. Assessment & Plan (04/23/2019 10:16 AM EST): The patient is chemically and clinically euthyroid on levothyroxine 112 mcg and I will renew the order for 1 years time and she will follow-up in a year but she must repeat thyroid function studies prior to the visit which have also been requested. Assessment & Plan (06/29/2018 4:19 PM EST): The patient is feeling much better in terms of clinical symptoms but she still not chemically euthyroid and we will increase the dose from 88 200 mcg daily. She will repeat thyroid function studies in 3 months time. Assessment & Plan (03/29/2018 4:13 PM EDT): The patient is currently on levothyroxine 75 mcg daily. Based on her TSH of 10 W[place] U/mL it is not enough. She continues to have hair loss and has dry skin. Furthermore she still complains of increased bowel movements which is somewhat odd because this is more associated with hyperthyroidism not hypothyroidism. Her symptoms of irritability and nervousness have improved and her weight gain has stabilized. I will increase the dose of levothyroxine to 88 mcg and have a repeat thyroid function studies in 3 months time. Assessment & Plan (02/15/2018 5:00 PM EDT): Unfortunately the patient has had abnormal thyroid function studies and his been difficult to regulate her thyroid function lately. Maybe this is because her lab work has been done to frequently. He usually takes 2 months for the TSH to change. It is somewhat difficult to know what to do because they have been so many changes. The patient is now complaining of irritability and hyper defecation including hair loss which can all be associated with too much thyroxine intake. The weight gain is usually seen just with lack of thyroxine but you can have hair loss with this as well. My suggestion is that the patient just take 1 tablet daily of 75 g. She should repeat lab work in 6 weeks so that would've been approximately 8-9 weeks of levothyroxine 75 g and at least 1-1/2 weeks where she was taking 85 g. Issue definitely correct her TSH by then. Hopefully the TSH will not be suppressed. Injury of face 07/19/2012 Overview (08/10/2014): Facial injury Encounters Date Type Department Care Team Description 02/01/2025 11:40 AM EDT [place]med[place] [facility] [facility] [address], [address], [address] [place] [address] Charu Melo MD, PhD Rosai-Josh disease (Primary Dx) 01/29/2025 8:52 AM EDT - 01/29/2025 11:59 PM EDT Hospital Encounter [facility] - Pet Scan, [facility] [address] [place] [address] Charu Melo MD, PhD Discharge Disposition: Home or Self Care 01/28/2025 9:30 AM EDT Office Visit [facility] [address] [place] [address] Ernie Cruz DO 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 (Primary Dx) 01/25/2025 12:42 PM EDT - 01/25/2025 11:59 PM EDT Hospital Encounter [facility] [address] [place] [address] Ernie Cruz DO Discharge Disposition: Home or Self Care 01/11/2025 12:00 PM EDT Office [place] [facility] [place] [facility] [address] [place] [address], 9th Floor, [address] [place] [address] Charu Melo MD, PhD Rosai-Josh disease (Primary Dx) from Last 3 Months Family History Medical History Relation Comments Coronary artery disease Brother Cardiomyopathy Daughter Hyperlipidemia Father Hypertension Father Thyroid disease Maternal Aunt Cancer Maternal Grandfather Hypertension Maternal Grandfather Cancer Maternal Grandmother Cerebrovascular disease Maternal Grandmother Hypertension Maternal Grandmother Diabetes Mother Hyperlipidemia Mother Hypertension Mother Osteoporosis Mother Diabetes Paternal Grandfather Thyroid disease Paternal Grandmother Asthma Sister Relation Status Comments Brother Daughter Father Alive Maternal Aunt Alive Maternal Grandfather Maternal Grandmother Mother Alive Paternal Grandfather Paternal Grandmother Alive Sister Alive Social History Tobacco Use Types Packs/Day Years Used Date Smoking Tobacco: Every Day Cigarettes 0.5 16.1 Started: 03/14/2009 Smokeless Tobacco: Never Tobacco Cessation:Ready to Q uit: Not Asked; Counseling Given: Not Answered Alcohol Use Standard Drinks/Week Comments Not Currently [...] on file Sexual Orientation Not on file Last Filed Vital Signs Vital Sign Reading Time Taken Comments Blood Pressure 140/90 01/28/2025 9:33 AM EDT Pulse 85 01/28/2025 9:33 AM EDT Temperature 36.8 C (98.2 F) 01/28/2025 9:33 AM EDT Respiratory Rate 16 01/11/2025 11:57 AM EDT Oxygen Saturation 98% 01/28/2025 9:33 AM EDT Inhaled Oxygen Concentration - - Weight 89.4 kg (197 lb) 01/28/2025 9:33 AM EDT Height 165.9 cm (5' 5.32 ) 01/28/2025 9:33 AM ED T Body Mass Index 32.47 01/28/2025 9:33 AM EDT Plan of Treatment Upcoming Encounters Date Type Department Care Team (Late st Contact Info) Description 04/30/2025 8:00 AM EST Office [place] [facility] [place] [address], 4th Floor, [address] [place] [address] Bambi Parker MD, MPH [address] [address] [email or web address] 07/01/2025 11:45 AM EST Office Visit [facility] [address] [facility] 9th [place] [address] Juan Burnham MD [address] [place] [id number] [email or web address] 01/27/2026 9:30 AM EDT Office Visit [facility] [address] [place] [address] Ernie Cruz DO [address] [place] [address] [email or web address] Health Maintenance Due Date Last Done Comments DEPRESSION SCREENING 1996 PNEUMOCOCCAL VACCINES (0-49 years) (1 of 2 - PCV) 2003 PAP SMEAR 2005 MAMMOGRAM 2024 INFLUENZA VACCINE (#1) 2025 , 03/27/2022, 04/04/2021, Additional history exists COVID-19 VACCINE ( season) 2025 06/29/2021, 09/25/2020, 09/04/2020 BLOOD PRESSURE 07/31/2025 01/28/2025 SMOKING Hx and SMOKELESS TOBACCO SCREENING 12/24/2025 12/24/2024 TSH LEVEL 01/25/2026 01/25/2025, 0810/2023, 12/24/2022, Additional history exists Adult Td,Tdap Booster 07/06/2027 07/06/2017, 015 SCREENING FOR DIABETES 01/30/2028 01/29/2025 HEPATITIS C SCREENING Completed 10/06/2010, 004 HIV ONE-TIME SCREENING (18-65 YEARS) Completed 10/06/2010, 01/29/2002 HEPATITIS A VACCINES Aged Out No long er eligible based on patient's age to complete this topic HIB VACCINES Aged Out No longer eligi ble based on patient's age to complete this topic MENINGOCOCCAL VACCINES (ACWY) Aged Out No longer eligible based on patient's age to complete this topic MENINGOCOCCAL VACCINES (B) Aged Out N o longer eligible based on patient's age to complete this topic Medical Devices Explanted Type Area Stitch Bonding Machine Tender Device Identifier Shelf Expiration Date Model / Serial / Lot Hardware Face And Elbow Procedures Procedure Name Priority Date/Time Associated Diagnosis Comments NM PET CT SKULL BASE TO MID THIGHS Routine 01/29/2025 10:23 AM EDT Rosai-Josh disease POCT GLUCOSE Routine 01/29/2025 9:04 AM EDT TSH Routine 01/25/2025 12:43 PM EDT 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 FREE T4 Routine 01/25/2025 12:43 PM EDT 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 Post-surgical changes to the bilateral paranasal sinuses. Patchy increased FDG uptake associated with right greater than left pansinusitis, as described, could represent recurrent sinonasal Rosai-Josh versus inflammatory/infectious etiology. 2. No evidence of FDG-avid rogelio or additional extranodal disease sites. 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 FDG PET/CT for initial treatment strategy. TECHNIQUE: 9.93 mCi F-18 FDG was injected. Approximately 60 minutes later, tomographic images of the body from skull base to proximal thigh were acquired with low dose attenuation correction CT. Images were reviewed in axial, coronal, and sagittal projections. The patient's blood glucose at the time of imaging was 100 mg/dl. PET images were obtained and processed using very low dose CT for attenuation correction and localization purposes only. No diagnostic CT images were obtained as part of this examination. Although incidental CT findings may be identified, this examination is not designed to provide diagnostic quality CT evaluation, and is not a substitute for diagnostic CT imaging. COMPARISON: Outside face CT from 04/28/2023 FINDINGS: There is bilateral cervical and supraclavicular uptake in a distribution typical of hypermetabolic brown fat. The intensity of uptake in these regions limit the assessment for subtle uptake abnormalities in these regions. HEAD/NECK: Acquisition parameters and the field of view were optimized for the whole body and are suboptimal for assessment of the brain parenchyma. Within these limits, no gross abnormality is noted within the included portion of the brain parenchyma. Extensive post-surgical changes to the bilateral paranasal sinuses. Increased FDG uptake associated with current paranasal sinus findings, including complete opacification of the bilateral frontal and right sphenoid sinuses, near complete opacification of the right ethmoid air cells, partial opacification of the left ethmoid air cells, and mild mucosal thickening of the bilateral maxillary and left sphenoid sinuses. The greatest uptake is visualized within the anterior ethmoid air cells and right sphenoid sinus. There is improved aeration from preoperative images from 2022. There are no additional sites of FDG uptake outside of physiologic distribution in the neck. Diffuse symmetric intense FDG uptake to the oropharyngeal lymphoid soft tissues is within the wide range of physiologic uptake to these locations. 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 CHEST: There is increased FDG uptake within the distal esophagus, likely inflammatory. There are no additional sites of FDG uptake outside physiologic distribution in the chest. ABDOMEN AND PELVIS: Increased FDG uptake within the stomach, likely inflammatory. Otherwise, there are no sites of FDG uptake outside physiologic distribution in the abdomen or pelvis. Physiologic uptake within the endometrium. Hepatic steatosis. MUSCULOSKELETAL/SOFT TISSUES: There are no aggressive-appearing, focally FDG-avid osseous lesions. Increased FDG uptake surrounding the bilateral shoulders and hips, likely inflammatory/degenerative. ORIF hardware within distal right humerus on senior sql server dba image. Procedure Note Preeti Kimball MD - 02/01/[address] SKULL BASE TO MID THIGHS INDICATION: *Hematologic malignancy, staging; 39F, history of sinonasalRosai Josh disease s/p resection, systemic staging. FDG PET/CT for initial treatment strategy. TECHNIQUE: 9.93 mCi F-18 FDG was injected. Approximately 60 minutes later,tomographic images of the body from skull base to proximal thigh wereacquired with low dose attenuation correction CT. Images were reviewed inaxial, coronal, and sagittal projections. The patient's blood glucose atthe time of imaging was 100 mg/dl. PET images were obtained and processed using very low dose CT forattenuation correction and localization purposes only. No diagnostic CTimages were obtained as part of this examination. Although incidental CTfindings may be identified, this examination is not designed to providediagnostic quality CT evaluation, and is not a substitute for diagnosticCT imaging. COMPARISON: Outside face CT from 04/28/2023 FINDINGS: There is bilateral cervical and supraclavicular uptake in a distributiontypical of hypermetabolic brown fat. The intensity of uptake in theseregions limit the assessment for subtle uptake abnormalities in theseregions. HEAD/NECK: Acquisition parameters and the field of view were optimized for the wholebody and are suboptimal for assessment of the brain parenchyma. Withinthese limits, no gross abnormality is noted within the included portion ofthe brain parenchyma. Extensive post-surgical changes to the bilateral paranasal sinuses.Increased FDG uptake associated with current paranasal sinus findings,including complete opacification of the bilateral frontal and rightsphenoid sinuses, near complete opacification of the right ethmoid aircells, partial opacification of the left ethmoid air cells, and mildmucosal thickening of the bilateral maxillary and left sphenoid sinuses.The greatest uptake is visualized within the anterior ethmoid air cellsand right sphenoid sinus. There is improved aeration from preoperativeimages from 2022. There are no additional sites of FDG uptake outside of physiologicdistribution in the neck. Diffuse symmetric intense FDG uptake to the oropharyngeal lymphoid softtissues is within the wide range of physiologic uptake to theselocations. Post-surgical changes to the right maxilla and enucleation of the rightglobe from remote trauma. CHEST: There is increased FDG uptake within the distal esophagus, likelyinflammatory. There are no additional sites of FDG uptake outside physiologicdistribution in the chest. ABDOMEN AND PELVIS: Increased FDG uptake within the stomach, likely inflammatory. Otherwise,there are no sites of FDG uptake outside physiologic distribution in theabdomen or pelvis. Physiologic uptake within the endometrium. Hepatic steatosis. MUSCULOSKELETAL/SOFT TISSUES: There are no aggressive-appearing, focally FDG-avid osseous lesions. Increased FDG uptake surrounding the bilateral shoulders and hips, likelyinflammatory/degenerative. ORIF hardware within distal right humerus on senior sql server dba image. IMPRESSION: 1. Post-surgical changes to the bilateral paranasal sinuses. Patchyincreased FDG uptake associated with right greater than left pansinusitis,as described, could represent recurrent sinonasal Rosai-Josh versusinflammatory/infectious etiology. 2. No evidence of FDG-avid rogelio or additional extranodal diseasesites. us Charu Melo MD, PhD [facility] PET Final Result * POCT Glucose (01/29/2025 9:04 AM EDT) Glucose, POCT 100 70 - 100 mg/dL [facility] 01/29/2025 9:04 AM EDT 01/29/2025 9:07 AM EDT us Charu Melo MD, PhD POINT OF CARE TEST ORD ERABLES Final Result Performing Organization Address City/[facility]/ZIP Co de Phone Number [address] [address] * TSH (01/25/2025 12:43 PM EDT) TSH 2.14 0.27 - 4.20 uIU/mL [facility] Blood 01/25/2025 12:4 3 PM EDT 01/25/2025 12:48 PM EDT Ernie Cruz DO LAB BLOOD ORDERABLES Final Resul t Performing Organization Address [facility] Co de Phone Number [address] [address] * Free T4 (01/25/2025 12:43 PM EDT) FREE T4 1.4 0.9 - 1.7 ng/dL [facility] Blood 01/25/2025 12:4 3 PM EDT 01/25/2025 12:48 PM EDT us Ernie Cruz DO LAB BLOOD ORDERABLES Final Resul t Performing Organization Address [facility] Co de Phone Number [address] [address] * (ABNORMAL) LDH (01/11/2025 12:40 PM EDT) LDH 247(H) 110 - 210 U/L [facility] 01/11/2025 12:4 0 PM EDT 01/11/2025 12:55 PM EDT us Charu Melo MD, PhD LAB BLOOD ORDERABLES F inal Result Performing Organization Address City/[facility]/ZIP Co de Phone Number [address] [address] * (ABNORMAL) Comprehensive metabolic panel (01/11/2025 12:40 PM EDT) SODIUM 140 135 - 145 mmol/L [facility] POTASSIUM 4.3 3.4 - 5.0 mmol/L [facility] CHLORIDE 102 98 - 108 mmol/L [facility] CO2 26 23 - 32 mmol/L [facility] BUN 11 8 - 25 mg/dL [facility] CREATININE 0.79 0.50 - 1.00 mg/dL [facility] GLUCOSE 114(H) 70 - 110 mg/dL [facility] ALBUMIN 4.5 3.3 - 5.0 g/dL [facility] TOTAL PROTEIN 7.2 6.0 - 8.3 g/dL [facility] CALCIUM 9.3 8.5 - 10.5 mg/dL [facility] ALKALINE PHOSPHATASE 122(H) 30 - 100 U/L [facility] TOTAL BILIRUBIN 0.4 0.0 - 1.0 mg/dL [facility] AST 46(H) 9 - 32 U/L [facility] ALT 41(H) 7 - 33 U/L [facility] GLOBULIN 2.7 1.9 - 4.1 g/dL [facility] EGFR 97 >59 mL/min/1. 73m2 [facility] Comment:Estimated glomerular filtration rate calculated using the CKD-EPI refit equation. ANION GAP 12 3 - 17 mmol/L [facility] 01/11/2025 12:4 0 PM EDT 01/11/2025 12:55 PM EDT us Charu Melo MD, PhD LAB BLOOD ORDERABLES F inal Result [address] [address] * (ABNORMAL) CBC and differential (01/11/2025 12:40 PM EDT) WBC 6.91 4.00 - 11.00 K/uL [facility] RBC 4.74 4.00 - 5.20 M/uL [facility] HGB 15.0 12.0 - 16.0 g/dL [facility] HCT 44.4 36.0 - 46.0 % [facility] PLT 193 150 - 450 K/uL [facility] MCV 93.7 80.0 - 100.0 fL [facility] MCH 31.6(H) 27.0 - 31.0 pg [facility] MCHC 33.8 32.0 - 36.0 g/dL [facility] RDW 12.5 11.5 - 14.5 % [facility] MPV 9.3 8.4 - 12.0 fL [facility] NRBC 0.00 0.00 /100 WBCs [facility] ABSOLUTE NRBC 0.00 0.00 K/uL [facility] DIFF METHOD Auto [facility] NEUTS 67.4 48.0 - 76.0 % [facility] LYMPHS 17.7(L) 18.0 - 41.0 % [facility] MONOS 8.4 4.0 - 11.0 % [facility] EOS 5.5(H) 0.0 - 5.0 % [facility] BASOS 0.9 0.0 - 1.5 % [facility] % IMMATURE GRANS 0.1 0.0 - 0.9 % [facility] ABSOLUTE NEUTS 4.66 1.92 - 7.60 K/uL [facility] ABSOLUTE LYMPHS 1.22 0.72 - 4.10 K/uL [facility] ABSOLUTE MONOS 0.58 0.16 - 1.10 K/uL [facility] ABSOLUTE EOS 0.38 0.00 - 0.50 K/uL [facility] ABSOLUTE BASOS 0.06 0.00 - 0.15 K/uL [facility] ABS IMMATURE GRANS 0.01 0.00 - 0.09 K/uL [facility] Blood 01/11/2025 12:4 0 PM EDT 01/11/2025 12:55 PM EDT us Charu Melo MD, PhD LAB BLOOD ORDERABLES F inal Result [facility] [address] [place] [address] * Historical Lab (10/06/2010 7:05 PM EDT) Hepatitis B Virus Surface Antigen Nonreactive Nonreactive [facility] Comment: @ Test Performed By: [facility] Liliam Carmona MD, FCAP, Validation Engineer [id number] [place] [address] [facility] #[id number] Hepatitis C Virus IgG Antibodies Nonreactive Nonreactive [facility] 10/06/2010 7:05 PM EDT 10/06/2010 7:05 PM EDT Narrative [facility] - 10/09/2010 1:33 PM EDT [employer] [address] us Cory Spivey MD LAB BLOOD ORDERAB[place] [address], [facility] from Last 3 Months or Most Recently Relevant to Health Maintenance Insurance [address] [address] [facility] [address] [address] [address] [place] [address] [facility] [address] [place] [address] [place] [address] [facility] Advance Directives For more information, please contact: [phone] (9AM - 5PM [facility], Tuesday-Tuesday) Documents on File Type Date Recorded Patient Vocational Psychologist Expl anation Healthcare Proxy 03/24/2024 4:21 PM Care Teams Ladies Suit Operator Relationship Specialty Start Date End Date Dejah Dean MD PCP - General Internal Medicine 12/18/24 Additional Source Comments The information contained in this document represents components of the legal health record. It is not the complete legal health record.[facility]
== END 2025-04-04 15:59 | disposition home or self-care (01) ==
LOC: HO.HMCHD 15:20
PROVIDERS: PCP Internal Medicine; Visit Provider Physician Assistant Medical
DX: E03.9 Hypothyroidism, unspecified (principal); I10 Essential (primary) hypertension; K21.9 Gastro-esophageal reflux disease without esophagitis; Z91.013 Allergy to seafood; J32.9 Chronic sinusitis, unspecified; J45.909 Unspecified asthma, uncomplicated

== ENCOUNTER 2025-05-06 15:39 | Outpatient (REF) | payer BC, SELFPAY ==
[2025-05-06 16:23] LABS: Hematocrit 40.8 % (37.0-47.0); Hemoglobin 14.1 g/dl (12.0-16.0); Mean Corpuscular HGB Conc 34.6 g/dl (31.0-35.0); Mean Corpuscular Hemoglobin 31.9 pg (27.0-33.0); Mean Corpuscular Volume 92.3 fL (80.0-98.0); NRBC Abs Auto 0.000 X10*3/uL (0.0-0.012); NRBC Pct Auto 0.0 /100WBC (0.0-0.2); Platelet Count 262 X10*3/uL (160-400); Red Blood Count 4.42 X10*6/uL (4.20-5.50); White Blood Count 14.4 X10*3/uL (4.8-10.8)
[2025-05-06 17:01] LABS: Alanine Aminotransferase 28 U/L (0-31); Albumin Level 4.3 g/dL (3.5-5.0); Alkaline Phosphatase 112 U/L (39-117); Anion Gap 12 (12-20); Aspartate Amino Transferase 31 U/L (5-31); Blood Urea Nitrogen 12 mg/dL (9-16); Calcium 8.9 mg/dL (8.4-10.2); Carbon Dioxide 26 mmol/L (22-29); Chloride 104 mmol/L (96-108); Cholesterol 225 mg/dL (<200); Estimated Glomerular Filt Rate > 60; HDL Cholesterol 80 mg/dL (>40); Potassium 3.6 mmol/L (3.3-5.1); Sodium 138 mmol/L (135-145); Total Protein 6.9 g/dL (6.5-8.0); Triglycerides 104 mg/dL (<150)
== END 2025-05-06 15:40 | disposition home or self-care (01) ==
LOC: HO.LAB 15:39
PROVIDERS: PCP Physician Assistant Medical; Visit Provider Physician Assistant Medical
DX: Z00.00 Encounter for general adult medical examination without abnormal findings (principal); Z13.220 Encounter for screening for lipoid disorders; E03.9 Hypothyroidism, unspecified; Z13.21 Encounter for screening for nutritional disorder
CPT/HCPCS: 36415; 80053; 80061; 82306; 84443; 85027